=== PATIENT | female | born 1960 | race Caucasian/White ===

== ENCOUNTER 2022-12-17 16:36 | Outpatient (REF) | payer MEDICARE, MEDICAID, SELFPAY ==
[2022-12-17 17:16] LABS: Calculated LDL 138 mg/dL (<100); Cholesterol 230 mg/dL (<200); HDL Cholesterol 52 mg/dL (40-60); Triglyceride 202 mg/dL (<150)
== END 2022-12-17 16:37 | disposition home or self-care (01) ==
LOC: NCHCN 16:36
PROVIDERS: Visit Provider Family Medicine
DX: E78.89 Other lipoprotein metabolism disorders (principal)
CPT/HCPCS: 80061

== ENCOUNTER 2023-04-16 16:20 | Outpatient (REF) | payer MEDICARE, MEDICAID, SELFPAY ==
[2023-04-16 14:45] LABS: Calculated LDL 71 mg/dL (<100); Cholesterol 148 mg/dL (<200); HDL Cholesterol 30 mg/dL (40-60); Triglyceride 235 mg/dL (<150)
--- OUTSIDE RECORDS SUMMARY | 2023-04-16 16:25 | XMS_ITS | CCD ---
Author Name Unknown Address [address] [place] [address] [id number] Organization Unknown Address [address] [place] [address] [phone] Care Team Providers Care Exerciser Horse Name Role Phone МАРИЯ PEREZ Attending Physician [phone] МАРИЯ PEREZ Er Physician [phone] JIM Hill Registered Nurse [phone] CAT Howell Registered Nurse [phone] Vital Signs Vital Sign Value Unit Date/Time Recent/Initial ? BMI (Body Mass Index) 22.94 kg/m^2 05/31/2022 09: 04 Initial VS Weight Measured 106 lbs 05/31/2022 09:04 Ini tial VS Height 57 in 05/31/2022 09:04 Initial VS BSA (Body Surface Area) 1.39 m^2 05/31/2022 0 9:04 Initial VS BP Systolic 117 mmHg 05/31/2022 09:04 Initial VS BP Diastolic 66 mmHg 05/31/2022 09:04 Initia l VS Respiratory Rate 16 bpm 05/31/2022 09:04 In itial VS Heart Rate 60 bpm 05/31/2022 09:04 Initial VS O2 % BldC Oximetry 97 % 05/31/2022 09:04 Initial VS Body Temperature 36.3 degrees 05/31/2022 09:04 In itial VS Allergies Allergy Code Allergy Type Reaction Status CODEINE 2670 Drug allergy ITCHING Active HYDROCODONE 5489 Drug allergy RASH Active PENICILLIN 0 Drug allergy RASH Active contrast dye {Clinical monitoring unavailable} 0 Drug allergy UNKNOWN Active contrast dye {Clinical monitoring unavailable} 0 Drug allergy UNKNOWN Active Procedures Unknown or Not Available. History of Immunizations Unknown or Not Available. Problems Problem Code Start Date Resolved Date Status Heart attack 69583830 Active Aneurysm of brain 520711115 Active Lower back injury 309967270 Active Alcoholism 5442607 05/31/2022 Resolved CVA 923350542 05/31/2022 Resolved Chronic osteomyelitis 40840819 05/31/2022 Res olved Fracture of shoulder 41248674059095868 08/19/20 Resolved Results Unknown or Not Available. Active Medications Unknown or Not Available. Medications Administered During Visit Unknown or Not Available. 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 Patient Decision Aids Unknown or Not Available. Discharge Instructions You were admitted to [facility] on 05/31/2022 08:49 with a principal diagnosis of Other specified follicular disorders You were discharged from [facility] on 05/31/2022 10:09 Should you have any questions prior to discharge, please contact a member of your healthcare team. If you have left the hospital and have any questions, please contact your primary care physician. Chief Complaint and Reason For Visit Chief Complaint Date of Onset LEFT SIDE LUMP Function Status Unknown or Not Available. Plan of Care Unknown or Not Available. Referral/Transition of Care Unknown or Not Available.
--- OUTSIDE RECORDS SUMMARY | 2023-04-16 16:25 | XMS_ITS | CCD ---
Author Name Unknown Address [address] [place] [address] [id number] Organization Unknown Address [address] [place] [address] [phone] Care Team Providers Care Survival Specialist Name Role Phone SITA GOODEN Attending Physician [phone] Vital Signs Unknown or Not Available. Allergies Allergy Code Allergy Type Reaction Status [...] Start Date Resolved Date Status Heart attack 98407143 Active Aneurysm of brain 814484609 Active Lower back injury 555331074 Active Results Unknown or Not Available. Active Medications Unknown or Not Available. Medications Administered During Visit Unknown or Not Available. Encounters Encounter Diagnosis Diagnosis Code Start Date Encounter for screening for malignant neoplasm of respiratory organs Z122 11/04/2022 Social History Unknown or Not Available. Patient Decision Aids Unknown or Not Available. Discharge Instructions You were admitted to [facility] on 11/04/2022 07:44 with a principal diagnosis of Encounter for screening for malignant neoplasm of respiratory organs You were discharged from [facility] on 11/04/2022 07:44 Should you have any questions prior to discharge, please contact a member of your healthcare team. If you have left the hospital and have any questions, please contact your primary care physician. Chief Complaint and Reason For Visit Chief Complaint Date of Onset LDCT Function Status Unknown or Not Available. Plan of Care Unknown or Not Available. Referral/Transition of Care Unknown or Not Available.
--- OUTSIDE RECORDS SUMMARY | 2023-04-16 16:25 | XMS_ITS | CCD ---
Author Name Unknown Address [address] [place] [address] [phone] Organization Unknown Address [address], [place] [id number] Care Team Providers Care Search Advertising Strategist Name Role Phone JOSE BROWNING Rashel Attending Physician [phone] Vital Signs Unknown or Not Available. Allergies [...] Start Date Resolved Date Status Heart attack 16169841 Active Aneurysm of brain 668302045 Active Lower back injury 752835833 Active Results Unknown or Not Available. Active Medications Unknown or Not Available. Medications Administered During Visit Unknown or Not Available. Encounters Unknown or Not Available. Social History Unknown or Not Available. Patient Decision Aids Unknown or Not Available. Discharge Instructions You were admitted to [facility] on 04/14/2023 14:23 You were discharged from [facility] on 04/14/2023 14:23 Should you have any questions prior to discharge, please contact a member of your healthcare team. If you have left the hospital and have any questions, please contact your primary care physician. Chief Complaint and Reason For Visit Unknown or Not Available. Function Status Unknown or Not Available. Plan of Care Unknown or Not Available. Referral/Transition of Care Unknown or Not Available.
--- OUTSIDE RECORDS SUMMARY | 2023-04-16 16:25 | XMS_ITS | CCD ---
Author Name Unknown Address [address] [place] [address] [id number] Organization Unknown Address [address] [place] [address] [phone] Care Team Providers Care Supervisor Stage Carpentry Name Role Phone MOHINI OZNUA Attending Physician [phone] MOHINI OZUNA Er Physician [phone] TERI Soto Registered Nurse [phone] Vital Signs Vital Sign Value Unit Date/Time Recent/Initial ? BMI (Body Mass Index) 24.24 kg/m^2 08/19/2022 10: 47 Initial VS Weight Measured 120 lbs 08/19/2022 10:47 Ini tial VS Height 59 in 08/19/2022 10:47 Initial VS BSA (Body Surface Area) 1.51 m^2 08/19/2022 1 0:47 Initial VS BP Systolic 106 mmHg 08/19/2022 10:47 Initial VS BP Diastolic 78 mmHg 08/19/2022 10:47 Initia l VS Respiratory Rate 16 bpm 08/19/2022 10:47 In itial VS Heart Rate 60 bpm 08/19/2022 10:47 Initial VS O2 % BldC Oximetry 98 % 08/19/2022 10:47 Initial VS BP Systolic 101 mmHg 08/19/2022 15:44 Most Re cent VS BP Diastolic 62 mmHg 08/19/2022 15:44 Most R ecent VS Respiratory Rate 16 bpm 08/19/2022 15:[address] Recent VS Heart Rate 63 bpm 08/19/2022 15:44 Most Rec ent VS O2 % BldC Oximetry 100 % 08/19/2022 15:44 Most Recent VS Allergies Allergy Code Allergy Type Reaction [...] Start Date Resolved Date Status Heart attack 94413028 Active Aneurysm of brain 593475699 Active Lower back injury 213251103 Active Fracture of shoulder 21502202290346529 08/19/20 22 Resolved Results ACETAMINOPHEN* - Collect Taz e/Time: 08/19/2022 11:40 Test Name Code Test Result Test Units Test Ref Rang e ACETAMINOPHEN 3298-7 <2.0 ug/mL L=10.0 H=20 .0 ALCOHOL (ETHANOL)* - Collect Date/Time: 08/19/2022 11:40 Test Name Code Test Result Test Units Test Ref Rang e ALCOHOL (ETHANOL) 37844-9 <3 mg/dL AMMONIA - Collect Date/Time: 08/19/2022 11:40 Test Name Code Test Result Test Units Test Ref Rang e AMMONIA 32621-6 15 umol/L L=19 H=54 COMPREHENSIVE METABOLIC PANE L (CMP) - Collect Date/Time: 08/19/2022 11:40 Test Name Code Test Result Test Units Test Ref Rang e GLUCOSE 2345-7 83 mg/dL L=70 H=116 BUN 3094-0 12 mg/dL L=6 H=25 CREATININE 2160-0 0.48 mg/dL L=0.51 H=0.95 SODIUM SERUM 2951-2 134 mmol/L L=136 H=145 POTASSIUM SERUM 2823-3 4.0 mmol/L L=3.4 H=5 .2 CHLORIDE SERUM 2075-0 97 mmol/L L=96 H=110 CARBON DIOXIDE (CO2) 2028-9 29 mmol/L L=22 H=34 ANION GAP 12591-0 7.7 mmol/L CALCIUM SERUM 61889-1 9.5 mg/dL L=8.2 H=10. 2 BILIRUBIN TOTAL 1975-2 0.4 mg/dL L=0.0 H=1 .3 ALK. PHOS. 6768-6 104 U/L L=46 H=116 SGOT (AST) 1920-8 33 U/L L=15 H=37 SGPT (ALT) 1742-6 35 U/L L=12 H=78 TOTAL PROTEIN 2885-2 8.1 gm/dL L=6.0 H=8.0 ALBUMIN 1751-7 3.8 gm/dL L=3.4 H=5.0 AGE 62 years eGFR (non-Afr.Amer.) 50995-9 >120 mL/min eGFR (Afr-Sol[place] Islander) 39062-8 >120 mL/min MAGNESIUM SERUM* - Collect D ate/Time: 08/19/2022 11:40 Test Name Code Test Result Test Units Test Ref Rang e MAGNESIUM 01623-0 2.1 mg/dL L=1.8 H=2.4 SALICYLATE SERUM* - Collect Date/Time: 08/19/2022 11:40 Test Name Code Test Result Test Units Test Ref Rang e SALICYLATE 4024-6 <2.8 mg/dL L=15.0 H=30.0 TSH THYROID STIMULATING HORM ONE* - Collect Date/Time: 08/19/2022 11:40 Test Name Code Test Result Test Units Test Ref Rang e TSH 3014-8 1.459 uIU/mL L=0.360 H=3.74 0 CBC W/ DIFFERENTIAL* - Colle ct Date/Time: 08/19/2022 11:40 Test Name Code Test Result Test Units Test Ref Rang e WBC 6690-2 7.00 th/cmm L=5.00 H=10.00 NEUT % 63.4 % L=40.0 H=80.0 LYMPH % 26.0 % L=10.0 H=50.0 MONO % 45326-4 5.7 % L=2.0 H=12.0 EOS % 3.6 % L=0.0 H=8.0 BASO % 1.0 % L=0.0 H=3.0 IG % 2514-8 0.3 % L=0.0 H=1.1 NRBC % 94858-5 0.0 % L=0.0 H=0.0 NEUT abs count 751-8 4.4 th/cmm L=1.6 H=8. 4 LYMPH abs count 731-0 1.8 th/cmm L=1.5 H=4 .0 MONO abs count 742-7 0.4 th/cmm L=0.2 H=1. 0 EOS abs count 711-2 0.3 th/cmm L=0.0 H=0.5 BASO abs count 704-7 0.1 th/cmm L=0.0 H=0. 2 IG abs count 97025-1 0.0 th/cmm L=0.0 H=0.1 NRBC abs count 48264-4 0.0 mil/cmm L=0.0 H=0. 0 RBC 789-8 4.29 mil/cmm L=3.90 H=5.40 HEMOGLOBIN 718-7 14.2 gm/dL L=12.0 H=16.0 HEMATOCRIT 4544-3 42 % L=37 H=47 MCV 787-2 97 fL L=82 H=92 MCH 785-6 33.1 pg L=27.0 H=31.0 MCHC 786-4 34.0 % L=32.0 H=36.0 RDW-SD 788-0 45.5 fL L=39.0 H=49.0 PLATELET COUNT 777-3 306 th/cmm L=150 H=45 0 DRUG SCN 13 PANEL (MEDTOX)* - Collect Date/Time: 08/19/2022 11:14 Test Name Code Test Result Test Units Test Ref Rang e CANNABINOIDS 11006-8 NEGATIVE N/A Cutoff = 50 ng/mL PHENCYCLIDINE 78588-9 NEGATIVE N/A Cutoff = 25 ng/mL COCAINE 05242-3 NEGATIVE N/A Cutoff = 150 n g/mL METHAMPHETAMINES 60731-5 NEGATIVE N/A Cutoff = 500 ng/mL OPIATES 60188-8 NEGATIVE N/A Cutoff = 100 n g/mL AMPHETAMINES 23371-0 NEGATIVE N/A Cutoff = 500 ng/mL BENZODIAZEPINES 76821-2 NEGATIVE N/A Cutoff = 150 ng/mL TRICYCLIC ANTIDEP 3533-7 NEGATIVE N/A Cutoff = 300 ng/mL METHADONE 20860-7 NEGATIVE N/A Cutoff = 200 n g/mL BARBITURATES 31499-0 NEGATIVE N/A Cutoff = 200 ng/mL OXYCODONE 13147-5 NEGATIVE N/A Cutoff = 100 n g/mL PROPOXYPHENE 31490-4 NEGATIVE N/A Cutoff = 300 ng/mL BUPRENORPHINE 3414-0 NEGATIVE N/A Cutoff = 10 mg/mL URINALYSIS WITH REFLEX CULT IF POSITIVE* - Collect Date/Time: 08/19/2022 11:14 Test Name Code Test Result Test Units Test Ref Rang e COLLECTION MODE: 83315-4 CLEAN CATCH N/A Color 5778-6 STRAW N/A yellow Appearance 5767-9 CLEAR N/A clear Glucose urine 44643-5 NEGATIVE N/A negative mg /dl Bilirubin 5770-3 NEGATIVE N/A negative Ketones 2514-8 NEGATIVE N/A negative mg/dl Spec gravity 5811-5 <=1.005 N/A 1.003 - 1.03 0 pH urine 2756-5 6.5 N/A 5.0 - 7.0 Protein 59456-2 NEGATIVE N/A negative mg/dl Urobilinogen 81765-2 0.2 N/A <or= 1 EU/dl Nitrite. 5802-4 NEGATIVE N/A negative Blood 5794-3 NEGATIVE N/A negative Leukocytes. NEGATIVE N/A negative MICROSCOPIC NOT INDICAT N/A Active Medications Unknown or Not Available. Medications Administered During Visit Unknown or Not Available. Encounters Encounter Diagnosis Diagnosis Code Start Date Unspecified abnormalities of gait and mobility R 269 08/19/2022 Social History Unknown or Not Available. Patient Decision Aids Unknown or Not Available. Discharge Instructions You were admitted to [facility] on 08/19/2022 10:02 with a principal diagnosis of Unspecified abnormalities of gait and mobility You had the following tests done:ACETAMINOPHEN*ALCOHOL (ETHANOL)*AMMONIACBC W/ DIFFERENTIAL*COMPREHENSIVE METABOLIC PANEL (CMP)MAGNESIUM SERUM*SALICYLATE SERUM*TSH THYROID STIMULATING HORMONE*DRUG SCN 13 PANEL (MEDTOX)*URINALYSIS WITH REFLEX CULT IF POSITIVE* You were discharged from [facility] on 08/19/2022 15:45 Should you have any questions prior to discharge, please contact a member of your healthcare team. If you have left the hospital and have any questions, please contact your primary care physician. Chief Complaint and Reason For Visit Chief Complaint Date of Onset CONFUSION EVAL Function Status Unknown or Not Available. Plan of Care Unknown or Not Available. Referral/Transition of Care Unknown or Not Available.
== END 2023-04-16 16:21 | disposition home or self-care (01) ==
LOC: NCHCN 16:20
PROVIDERS: Visit Provider Family Medicine
DX: E78.5 Hyperlipidemia, unspecified (principal)
CPT/HCPCS: 80061